=== PATIENT | male | born 2000 | race Caucasian/White ===

== ENCOUNTER 2022-01-16 08:14 | Emergency (ER) | payer MEDICAID ==
[~2022-01-16] VITALS: Ht 167.6 cm; Wt 82.0 kg
[2022-01-16 08:17] VITALS: BP 129/77
[2022-01-16] MEDS ORDERED: DICYCLOMINE 10 MG/5 ML ORAL SYR PO STA (09:05)
[2022-01-16] MEDS ORDERED: ACETAMINOPHEN 325MG TABLET PO STA (09:05)
[2022-01-16 09:21] LABS: BASOPHILS % 0.9 % (0.0-2.0); EOSINOPHILS % 1.4 % (0.0-5.0); HEMATOCRIT. 45.9 % (42.0-52.0); HEMOGLOBIN. 15.6 g/dL (14.0-18.0); LYMPHOCYTES % 28.9 % (20.0-50.0); MEAN CORPUSCULAR VOLUME 91.4 fL (80.0-94.0); MEAN PLATELET VOLUME 7.5 fl (7.4-10.4); NEUTROPHILS % 59.8 % (40.0-76.0); PLATELET 268 x1000/uL (130-400); RED BLOOD CELL COUNT 5.03 mill/uL (4.7-6.1); RED CELL DISTRIBUTION WIDTH 13.1 % (11.6-14.6)
[2022-01-16 09:33] LABS: CHLORIDE 107 mEq/L (98-107)
[2022-01-16 10:51] LABS: CLARITY URINE CLEAR (CLEAR); COLOR URINE DARK YELLOW (YELLOW); KETONES URINE TRACE (NEGATIVE); LEUKOCYTE ESTERASE URINE NEGATIVE (NEGATIVE); NITRITE URINE NEGATIVE (NEGATIVE); OCCULT BLOOD URINE NEGATIVE (NEGATIVE); PH URINE 5.5 (4.5-8.0); PROTEIN URINE TRACE (NEGATIVE); SPECIFIC GRAVITY URINE 1.038 (1.005-1.030)
[2022-01-16] MEDS ORDERED: ACETAMINOPHEN 325MG TABLET PO NR (11:15)
[2022-01-16] MEDS ORDERED: DICYCLOMINE 10 MG/5 ML ORAL SYR PO NR (11:15)
[2022-01-16] MEDS ORDERED: DICY10CA88 MT (11:33)
[2022-01-18 04:07] LABS: NEISSERIA GONORRHOEAE NAA Negative (Negative)
== END 2022-01-16 12:17 | disposition home or self-care (01) ==
LOC: ER 08:14
DX: R10.9 Unspecified abdominal pain (principal); R30.0 Dysuria
CPT/HCPCS: 36415; 80053; 81003; 85025; 87491; 87591; 99283